=== PATIENT | male | born 1965 | race African-American/Black ===

== ENCOUNTER 2019-02-22 13:16 | Emergency (ER) | payer MEDICARE, MEDICAID ==
[~2019-02-22] VITALS: Ht 188 cm; Wt 109.0 kg
[~2019-02-22 13:16] MED LIST: ASPI-1393 PO; ATOR20TA65 PO; CARV6.2548 PO; CHOL50003 PO; CLOP75TA4 PO; FURO80TA3 PO; LEVO75TA7 PO; POTA-9 PO; SACU1TAB PO; SITA50TA3 PO; SPIR25TA6 PO
[2019-02-22 14:14] VITALS: BP 100/67
== END 2019-02-22 16:20 | disposition home or self-care (01) ==
LOC: ER 13:16
DX: S21.112D Laceration without foreign body of left front wall of thorax without penetration into thoracic cavity, subsequent encounter (principal); X58.XXXD Exposure to other specified factors, subsequent encounter; E78.00 Pure hypercholesterolemia, unspecified; I10 Essential (primary) hypertension; Z95.0 Presence of cardiac pacemaker; Z79.82 Long term (current) use of aspirin; Z79.899 Other long term (current) drug therapy
CPT/HCPCS: 99281